=== PATIENT | male | born 1975 | race African-American/Black ===

== ENCOUNTER 2016-11-21 14:51 | Emergency (ER) | payer BC ==
--- NOTE | 2016-11-21 16:40 | ER Document Report ---
ED General - General Chief Complaint: Chest Pain Stated Complaint: CHEST PAIN Mode of Arrival: Ambulatory Information source: Patient Notes: 41-year-old male presents with complaints of palpitations. Patient notes that it's a thumping sensation that last only one second comes and goes. Patient denies any actual chest pain. denies any sob, notes when he takes a breath it goes away. pt denies any revious cardiac hx, admits ot hx of high cholesterol TRAVEL OUTSIDE OF THE [place] IN LAST 30 DAYS: No - HPI Onset: Just prior to arrival Onset/Duration: Sudden Quality of pain: No pain Severity: Mild Pain Level: Denies Associated symptoms: Other Exacerbated by: Denies Relieved by: Denies Similar symptoms previously: No Recently seen / treated by doctor: No - Related Data Allergies/Adverse Reactions: No Known Allergies Allergy (Unverified 11/21/16 15:32) Past Medical History - Social History Smoking Status: Current Every Day Smoker Cigarette use (# per day): No Chew tobacco use (# tins/day): No Smoking Education Provided: No Family History: None Renal/ Medical History: Denies: Hx Peritoneal Dialysis Review of Systems - Review of Systems Notes: REVIEW OF SYSTEMS: CONSTITUTIONAL : Denies fever, chills, or sweats. Denies recent illness. EENT: Denies eye, ear, throat, or mouth pain or symptoms. Denies nasal or sinus congestion or discharge. Denies throat, tongue, or mouth swelling or difficulty swallowing. CARDIOVASCULAR: Admits palpitation RESPIRATORY: Denies cough, cold, or chest congestion. Denies shortness of breath, difficulty breathing, or wheezing. GASTROINTESTINAL: Denies abdominal pain or distention. Denies nausea, vomiting , or diarrhea. Denies blood in vomitus, stools, or per rectum. Denies black, tarry stools. Denies constipation. GENITOURINARY: Denies difficulty urinating, painful urination, burning, frequency, blood in urine, or discharge. MUSCULOSKELETAL: Denies back or neck pain or stiffness. Denies joint pain or swelling. SKIN: Denies rash, lesions or sores. HEMATOLOGIC : Denies easy bruising or bleeding. LYMPHATIC: Denies swollen, enlarged glands. NEUROLOGICAL: Denies confusion or altered mental status. Denies passing out or loss of consciousness. Denies dizziness or lightheadedness. Denies headache. Denies weakness or paralysis or loss of use of either side. Denies problems with gait or speech. Denies sensory loss, numbness, or tingling. Denies seizures. PSYCHIATRIC: Denies anxiety or stress. Denies depression, suicidal ideation, or homicidal ideation. ALL OTHER SYSTEMS REVIEWED AND NEGATIVE. Dictation was performed using [email or web address] voice recognition software PHYSICAL EXAMINATION: GENERAL: Well-appearing, well-nourished and in no acute distress. HEAD: Atraumatic, normocephalic. EYES: Pupils equal round and reactive to light, extraocular movements intact, sclera anicteric, conjunctiva are normal. ENT: Nares patent, oropharynx clear without exudates. Moist mucous membranes. NECK: Normal range of motion, supple without lymphadenopathy LUNGS: Breath sounds clear to auscultation bilaterally and equal. No wheezes rales or rhonchi. HEART: Regular rate and rhythm without murmurs ABDOMEN: Soft, nontender, nondistended abdomen. No guarding, no rebound. No masses appreciated. Musculoskeletal: Normal range of motion, no pitting or edema. No cyanosis. NEUROLOGICAL: Cranial nerves grossly intact. Normal speech, normal gait. Normal sensory, motor exams PSYCH: Normal mood, normal affect. SKIN: Warm, Dry, normal turgor, no rashes or lesions noted. 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 I believe the patient's complaints are secondary to palpitations , lab work is pending at this time he does not appear to have any chest pain and denies this profusely 11/21/16 17:56 Lab work notes no significant abnormality except for elevated cholesterol levels which the patient is aware of. He will be given follow-up with cardiology is otherwise well-appearing stable and has been instructed not to take medications that are not prescribed to him After performing a Medical Screening Examination, I estimate there is LOW risk for RUPTURED ESOPHAGUS, PNEUMOTHORAX, PULMONARY EMBOLISM, ACUTE CORONARY SYNDROME, OR THORACIC AORTIC DISSECTION, thus I consider the discharge disposition reasonable. I have reevaluated this patient multiple times and no significant life threatening changes are noted. The patient and I have discussed the diagnosis and risks, and we agree with discharging home with close follow-up. We also discussed returning to the Emergency Department immediately if new or worsening symptoms occur. We have discussed the symptoms which are most concerning (e.g., bloody sputum, worsening pain or shortness of breath) that necessitate immediate return. - Laboratory Result Diagrams: 11/21/16 16:40 11/21/16 16:40 Laboratory results interpreted by me: 11/21/16 11/21/16 16:40 16:40 RDW 14.3 H Creatine Kinase 224 H Triglycerides 284 H Cholesterol 227.48 H LDL Cholesterol Direct 120 H VLDL Cholesterol 56.8 H - Diagnostic Test Radiology reviewed: Image reviewed, Reports reviewed - EKG Interpretation by Me EKG shows normal: Sinus rhythm, Warrior, Intervals, QRS Complexes Discharge - Discharge Clinical Impression: Palpitation Condition: Stable Disposition: HOME, SELF-CARE Instructions: Palpitations (Irregular or Rapid Heartrate) ([facility]) Referrals: JANETTE SPENCER MD [ACTIVE STAFF] - Follow up tomorrow
[2016-11-21 16:50] LABS: ABSOLUTE BASOPHILS # (AUTO) 0.1 10^3/uL (0.0-0.2); ABSOLUTE EOSINOPHILS # (AUTO) 0.4 10^3/uL (0.0-0.6); ABSOLUTE LYMPHOCYTES (AUTO) 2.4 10^3/uL (0.5-4.7); ABSOLUTE MONOCYTES (AUTO) 0.7 10^3/uL (0.1-1.4); ABSOLUTE NEUT (AUTO) 4.7 10^3/uL (1.7-8.2); BASOPHILS % (AUTO) 0.8 % (0-2); EOSINOPHILS % (AUTO) 4.5 % (0-6); HEMATOCRIT 42.8 % (37.9-51.0); HEMOGLOBIN 14.1 g/dL (13.5-17.0); HGB HCT DIFFERENCE -0.5; LYMPHOCYTES % (AUTO) 29.2 % (13-45); MEAN CORPUSCULAR HEMOGLOBIN 28.4 pg (27.0-33.4); MEAN CORPUSCULAR VOLUME 86 fl (80-97); MONOCYTES % (AUTO) 8.3 % (3-13); RED BLOOD COUNT 4.99 10^6/uL (4.35-5.55); RED CELL DISTRIBUTION WIDTH 14.3 % (11.5-14.0); SEGMENTED NEUTROPHILS % (AUTO) 57.2 % (42-78); WHITE BLOOD COUNT 8.1 10^3/uL (4.0-10.5)
[2016-11-21 17:09] LABS: ALANINE AMINOTRANSFERASE 41 U/L (21-72); ALBUMIN 4.5 g/dL (3.5-5.0); ALKALINE PHOSPHATASE 78 U/L (38-126); ANION GAP 15 (5-19); ASPARTATE AMINO TRANSFERASE 24 U/L (17-59); BILIRUBIN,DIRECT 0.4 mg/dL (0.0-0.4); BILIRUBIN,TOTAL 0.6 mg/dL (0.2-1.3); BLOOD UREA NITROGEN 14 mg/dL (7-20); CALCIUM 9.4 mg/dL (8.4-10.2); CARBON DIOXIDE 24 mmol/L (22-30); CHLORIDE 106 mmol/L (98-107); CHOLESTEROL 227.48 mg/dL (0-200); CREATINE KINASE 224 U/L (55-170); CREATININE RESULT 1.07 mg/dL (0.52-1.25); Direct HDL 45 mg/dL (>40); GLUCOSE 101 mg/dL (75-110); POTASSIUM 4.3 mmol/L (3.6-5.0); SODIUM 144.6 mmol/L (137-145); TOTAL PROTEIN 7.3 g/dL (6.3-8.2); TRIGLYCERIDES 284 mg/dL (<150)
[2016-11-21 17:20] LABS: DIRECT LDL 120 mg/dL (<100)
[2016-11-21 17:21] LABS: VLDL CHOLESTEROL 56.8 mg/dL (10-31)
[2016-11-21 17:23] LABS: CREATINE KINASE MB 0.31 ng/mL (<4.55)
[2016-11-21 17:27] LABS: TROPONIN I < 0.012 ng/mL
[2016-11-21 18:04] VITALS: BP 119/71
--- NOTE | 2016-11-21 21:32 | EKG REPORT ---
SEVERITY:- NORMAL ECG - SINUS RHYTHM : Confirmed by: Yasemin Patel 21-Nov-2016 21:32:00
== END 2016-11-21 18:05 | disposition home or self-care (01) ==
LOC: ER 14:51
DX: R00.2 Palpitations (principal); R07.9 Chest pain, unspecified; F17.200 Nicotine dependence, unspecified, uncomplicated
CPT/HCPCS: 36415; 71010; 80053; 80061; 82550; 82553; 84443; 84484; 85025; 93005; 93010; 99285